=== PATIENT | female | born 1935 | race Caucasian/White ===

== ENCOUNTER 2020-02-24 17:41 | Inpatient (IN) | payer MEDICARE, OTHER ==
[~2020-02-24 17:41] MED LIST: CERTAGEN1 EACH PO; FEOSOL325 MG PO; OXYCODONE-ACET1 EAC1 PO; PANTOPRAZOLE SO40 MG PO; PERCOCET 5-3251 EACH PO; XARELTO10 MG PO
[2020-02-24 20:27] LABS: BASOPHIL 0.4 % (0-2); EOSINOPHIL 0 % (0-7); HCT 20.7 % (37.0-47.0); HGB 6.9 g/dl (12.5-16.0); LYMPHOCYTE 20.1 % (15-48); MCH 32.2 pg (25.0-31.0); MCHC 33.3 g/dL (32.0-36.0); MCV 96.7 fL (78.0-100.0); MONOCYTE 4.7 % (0-12); MPV 10.2 fL (6.0-9.5); NEUTROPHIL 74.4 % (41-80); NRBC 0; PLT 251 K/uL (150-400); RBC 2.14 M/uL (4.20-5.40); RDW 13.1 % (11.5-14.0); WBC 12.2 K/uL (4.0-10.5)
[2020-02-24 20:45] LABS: ALBUMIN 3.3 g/dL (3.4-5.0); BILIRUBIN - TOTAL 0.3 mg/dL (0.2-1.0); BUN/CREAT RATIO (CALC) 44.2 RATIO; CREATININE 0.77 mg/dL (0.51-0.95); GLOBULIN (CALCULATION) 2.7 g/dL; MAGNESIUM 1.9 mg/dL (1.8-2.4); POTASSIUM 4.1 mmol/L (3.5-5.1)
[2020-02-24 20:53] LABS: LACTIC ACID 0.7 mmol/L (0.4-1.9)
[2020-02-24 21:59] LABS: BILIRUBIN NEGATIVE (NEGATIVE); BLOOD 3+ Ery/uL (NEGATIVE); COLOR YELLOW (YELLOW); GLUCOSE (U) NORMAL (NORMAL); LEUKOCYTES 1+ Leu/uL (NEGATIVE); NITRITE POSITIVE (NEGATIVE); PROTEIN NEGATIVE (NEGATIVE); SPECIFIC GRAVITY 1.025 (1.001-1.030); UROBILINOGEN 0.2 mg/dL (0.2-1.0)
[2020-02-24 22:01] LABS: CLARITY HAZY (CLEAR)
[2020-02-24 22:02] LABS: BACTERIA 3+; URINARY RBC RARE; URINARY WBC TNTC
--- NOTE | 2020-02-24 23:08 | NUR ---
PATIENT ARRIVED TO THE FLOOR 2200 VIA STRETCHER. ALERT TO SELF AND VERY FORGETFUL. SINUS TACH NOTED ON MONITIOR. REPORT CALLED BY MARY.
--- NOTE | 2020-02-24 23:20 | NUR ---
ARRIVED TO FLOOR AT 2200. ALERT TO SELF AND PLACE VERY FORGETFUL. SINUS TACH NOTED ON MONITIOR
[2020-02-24 23:21] LABS: IRON % SATURATION 20.1 %SAT (20-50)
[2020-02-24 23:49] LABS: FOLIC ACID (SERUM) 13.2 ng/mL (8.6-58.9)
--- NOTE | 2020-02-25 04:42 | NUR ---
PATIENTS HGB 6.9 ON ARRIVAL TO TCU FLOOR. PATIENT ONLY HAD A 22 GAUGE IV. MULTIPLE NURSE ATTEMPTED 18 TIMES TO OBTAIN IV SITE. 20 GAUGE TO RFA OBTAIN BUT NOT FLUSHING WELL ENOUGH AT THIS TIME TO RUN BLOOD TRANSFUSION. TIRE RETREADER AWARE OF BLOOD NOT BEING STARTED.
[2020-02-25 06:58] LABS: BILIRUBIN NEGATIVE (NEGATIVE); BLOOD TRACE-INTACT Ery/uL (NEGATIVE); CLARITY CLEAR (CLEAR); COLOR YELLOW (YELLOW); GLUCOSE (U) NORMAL (NORMAL); LEUKOCYTES 1+ Leu/uL (NEGATIVE); NITRITE POSITIVE (NEGATIVE); PROTEIN NEGATIVE (NEGATIVE); SPECIFIC GRAVITY 1.025 (1.001-1.030); UROBILINOGEN 0.2 mg/dL (0.2-1.0); pH 5.5 (5.0-9.0)
[2020-02-25 07:08] LABS: URINARY WBC 20-50
[2020-02-25 07:09] LABS: BACTERIA 2+; URINARY RBC RARE
[2020-02-25 07:11] LABS: SQUAMOUS EPITHELIAL CELLS RARE
--- NOTE | 2020-02-25 10:38 | NUR ---
1010 MIDLINE ORDERED FOR PT FOR POOR IV ACCESS. PROCEDURE EXPLAINED TO PT ALONG WITH RISKS AND BENEFITS. LEFT ARM POSITIONED OUT TO SIDE, THE US MACHINE WAS USED TO LOCATE THE LEFT UPPER ARM BASILIC VEIN, VEIN WAS MARKED AND THEN THE ARM WAS CLEANSED WITH CHLORAPREP TH EUS MACHINE WAS USED TO LOCATE THE BASILIC VEIN ONCE AGAIN AND THE ARE WAS ANESTHETIZED WITH 1% LICOCAINE, A #21 GAUGE GUIDE NEEDLE WAS USED TO CANNULATED THE VEIN, HAD A GOOD BLOOD RETURN AND A GUIDE WIRE WAS ATTEMPTED TO BE THREADED THRU THE GUIDE NEEDLE WITHOUT SUCCESS, THIS WAS AGAIN ATTEMPTD RIGHT ABOVE THE FIRST SITE WITHOUT SUCCESS. THEN THE RIGHT ARM WAS POSITIONED AND THE US MACHINE WAS USED TO LOCATE THE RIGHT UPPER ARM BASILIC VEIN, THE VEIN WAS LOCATED AND MARKED. THE ARM WAS CLEANSED WITH CHLORAPREP AND THEN THE AREA WAS ANESTHESIZED WITH 1% LIDOCAINE A #21 GAUGE GUIDE NEEDLE WAS USED TO CANNULATE THE RIGHT UPPER ARM BASILIC VEIN, THERE WAS GOOD BLOOD RETURN, THE GUIDE WIRE WAS THREADED THROUGH THE GUIDE NEEDLE WITHOUT DIFFICULTY, THE GUIDE NEEDLE WAS REMOVED OVER THE GUIDE WIRE. A 20G 10 CM MIDLINE CATHETER WAS THREADED OVER THE GUIDE WIRE, THE WIRE WAS THEN REMOVE LEAVING THE CATHETER IN PLACE. THERE WAS GOOD BLOOD RETURN AND IT FLUSHED EASILY WITH STERILE NORMAL SALINE. THE CONNECTOR WAS FLUSHED AND ATTACHED TO THE MIDLINE CATHETER WITH AN END CAP. THERE WAS GOOD BLOOD RETURN AND THE CATHETER WAS FLUSHED EASILY WITH 30ML OF STERILE SALINE. THE PATIENT'S ARM WAS CLEANED AND A STERILE DRESSING WAS APPLIED OVER THE MIDLINE CATHETER. PT TOLERATED THE PROCEDURE WELL. REPORT WAS GIVEN TO KAREEM NOYOLA R.N. IN TCU.
[2020-02-25 10:42] LABS: BASOPHIL 0.7 % (0-2); HCT 17.7 % (37.0-47.0); LYMPHOCYTE 36.2 % (15-48); MCH 31.9 pg (25.0-31.0); MCHC 32.8 g/dL (32.0-36.0); MCV 97.3 fL (78.0-100.0); MONOCYTE 6.6 % (0-12); MPV 10.3 fL (6.0-9.5); NEUTROPHIL 55.2 % (41-80); NRBC 0; PLT 217 K/uL (150-400); RBC 1.82 M/uL (4.20-5.40); RDW 13.1 % (11.5-14.0); WBC 6.9 K/uL (4.0-10.5)
[2020-02-25 10:48] LABS: HGB 5.8 g/dl (12.5-16.0)
[2020-02-25 11:13] LABS: BUN/CREAT RATIO (CALC) 36.8 RATIO; CREATININE 0.68 mg/dL (0.51-0.95); POTASSIUM 3.8 mmol/L (3.5-5.1)
[2020-02-25 22:39] LABS: HCT 29.3 % (37.0-47.0); HGB 9.7 g/dL (12.5-16.0)
[2020-02-26 05:51] LABS: BASOPHIL 0.8 % (0-2); EOSINOPHIL 1.2 % (0-7); HCT 28.7 % (37.0-47.0); LYMPHOCYTE 27.4 % (15-48); MCH 28.8 pg (25.0-31.0); MCHC 32.1 g/dL (32.0-36.0); MONOCYTE 6.9 % (0-12); MPV 9.7 fL (6.0-9.5); NEUTROPHIL 63.3 % (41-80); NRBC 0; PLT 203 K/uL (150-400); RBC 3.19 M/uL (4.20-5.40); RDW 15.9 % (11.5-14.0); WBC 7.4 K/uL (4.0-10.5)
[2020-02-26 05:53] LABS: HGB 9.2 g/dl (12.5-16.0)
[2020-02-26 06:03] LABS: BUN/CREAT RATIO (CALC) 18.9 RATIO; CREATININE 0.74 mg/dL (0.51-0.95); POTASSIUM 3.7 mmol/L (3.5-5.1)
--- NOTE | 2020-02-26 21:21 | NUR ---
WILL ADGITATED AND WILL NOT LEAVE ON SITE COORDINATOR, BAG GRADER NOTIFIED AND WILL ORDER A SITTER. WILL CONTINUE TO MONITOR
[2020-02-27 05:04] LABS: BASOPHIL 0.6 % (0-2); EOSINOPHIL 1.3 % (0-7); HCT 26.1 % (37.0-47.0); HGB 8.6 g/dl (12.5-16.0); MCH 30.1 pg (25.0-31.0); MCV 91.3 fL (78.0-100.0); MONOCYTE 6.6 % (0-12); NEUTROPHIL 65.1 % (41-80); NRBC 0; PLT 255 K/uL (150-400); RBC 2.86 M/uL (4.20-5.40); RDW 15.8 % (11.5-14.0); WBC 8.4 K/uL (4.0-10.5)
[2020-02-27 05:09] LABS: BUN/CREAT RATIO (CALC) 26.6 RATIO; CREATININE 0.79 mg/dL (0.51-0.95); POTASSIUM 3.5 mmol/L (3.5-5.1)
[2020-02-28 06:09] LABS: BASOPHIL 0.6 % (0-2); HCT 24.4 % (37.0-47.0); LYMPHOCYTE 25.7 % (15-48); MCHC 32.8 g/dL (32.0-36.0); MCV 91.4 fL (78.0-100.0); MONOCYTE 7.5 % (0-12); MPV 9.8 fL (6.0-9.5); NEUTROPHIL 63.9 % (41-80); NRBC 0; PLT 258 K/uL (150-400); RBC 2.67 M/uL (4.20-5.40); RDW 16.3 % (11.5-14.0)
[2020-02-28 07:45] LABS: BUN/CREAT RATIO (CALC) 20.3 RATIO; CREATININE 0.79 mg/dL (0.51-0.95); POTASSIUM 3.8 mmol/L (3.5-5.1)
--- NOTE | 2020-02-28 16:47 | NUR ---
02/28/20 Ms. Fitzpatrick is a 84 y/o woman. She was oriented to name, , and place at the time of the social assessment. History of dementia is noted in the H&P. Ms. Fitzpatrick reported the following. She had 3 sons; one is , one lives in [place], and Torres Fitzpatrick lives in the home. She has a rw and 3in1. Ms. Fitzpatrick reports to be independent with ADLS, housekeeping, and meal preparation. She reports her son to do the shopping and to be helpful. - Several unsuccessful attempts have been made to reach her son, by telephone. - Ms. Fitzpatrick chose [facility], affliations explained. The HHR included PT, nursing and social work to evaluate home safety.
[2020-02-29 04:21] LABS: BASOPHIL 0.7 % (0-2); EOSINOPHIL 1.7 % (0-7); HGB 8.7 g/dl (12.5-16.0); LYMPHOCYTE 28.9 % (15-48); MCH 30.1 pg (25.0-31.0); MCHC 32.2 g/dL (32.0-36.0); MCV 93.4 fL (78.0-100.0); MONOCYTE 7.1 % (0-12); MPV 9.8 fL (6.0-9.5); NEUTROPHIL 61.2 % (41-80); NRBC 0; PLT 345 K/uL (150-400); RBC 2.89 M/uL (4.20-5.40); RDW 16.2 % (11.5-14.0); WBC 8.4 K/uL (4.0-10.5)
[2020-02-29 04:57] LABS: CREATININE 0.8 mg/dL (0.51-0.95); POTASSIUM 3.5 mmol/L (3.5-5.1)
[2020-02-29] MEDS ORDERED: PANTOPRAZOLE SO40 MG PO (13:16)
[2020-02-29 16:19] LABS: BASOPHIL 0.7 % (0-2); EOSINOPHIL 1.2 % (0-7); HCT 28.1 % (37.0-47.0); HGB 8.9 g/dl (12.5-16.0); LYMPHOCYTE 22.5 % (15-48); MCH 29.7 pg (25.0-31.0); MCHC 31.7 g/dL (32.0-36.0); MCV 93.7 fL (78.0-100.0); MONOCYTE 7.1 % (0-12); MPV 9.4 fL (6.0-9.5); NEUTROPHIL 68.1 % (41-80); NRBC 0; PLT 351 K/uL (150-400); RDW 16.4 % (11.5-14.0); WBC 8.5 K/uL (4.0-10.5)
[2020-02-29 16:39] LABS: ALBUMIN 3.2 g/dL (3.4-5.0); BILIRUBIN - TOTAL 0.4 mg/dL (0.2-1.0); BUN/CREAT RATIO (CALC) 23.1 RATIO; CREATININE 0.78 mg/dL (0.51-0.95); GLOBULIN (CALCULATION) 3.1 g/dL; POTASSIUM 3.9 mmol/L (3.5-5.1); TOTAL PROTEIN 6.3 g/dL (6.4-8.2)
--- NOTE | 2020-02-29 17:24 | NUR ---
02/29/20 Patient had a decline in condition and therefore will not be discharged today as planned. Please notify [facility] at [phone] should patient discharge over the weekend.
--- NOTE | 2020-02-29 17:40 | NUR ---
1520 SUSIE SALES RN AND I HELPED PATIENT TO THE TOILET TO START DRESSING TO GO HOME.PATIENT PASSING GAS NO BM, PATIENT STATED SHE FELT WEAK I ASSISTED HER TO SIT DOWN ON THE TOILET TO REST PATIENT STARTED TO SLUMP OVER AND BECAME UNRESPONSIVE. PATIENTS LEFT ARM BECAME POSTURED AND WE LAID HER IN THE FLOOR PULSE ASSESSED WEAK AND THREADY 1529 CODE WAS CALLED AND COMPRESSIONS STARTED BY SUSIE Charlton RN, PATIENT YELLED OUT AFTER INITIAL COMPRESSION. 1531 PATIENT CARRIED TO HER BED V/S TAKEN 02-100%, HR 109, BP 123/60, RR 20, #20 G PLACED IN RIGHT HAND, 1535 100% NRB PLACED ON PATIENT, PATIENT STATED SHE WAS EXPERIENCING NO PAIN, EKG ORDERED RESULTS NSR, HR 97, DR JAUREGUI ASSESSED PATIENT, LABS ORDERED/ STAT HEAD CT/ CHEST X RAY ORDERED. 1539 BG CHECKED RESULTS 130. PATIENT RESTING COMFORTABLY AT THIS TIME, V/S STABLE.
[2020-03-01 05:47] LABS: BASOPHIL 0.7 % (0-2); HCT 25.4 % (37.0-47.0); HGB 8.1 g/dl (12.5-16.0); MCH 30.2 pg (25.0-31.0); MCHC 31.9 g/dL (32.0-36.0); MCV 94.8 fL (78.0-100.0); MONOCYTE 6.7 % (0-12); MPV 9.7 fL (6.0-9.5); NEUTROPHIL 71.3 % (41-80); NRBC 0; PLT 348 K/uL (150-400); RBC 2.68 M/uL (4.20-5.40); RDW 16.3 % (11.5-14.0); WBC 8.6 K/uL (4.0-10.5)
[2020-03-01 06:03] LABS: BUN/CREAT RATIO (CALC) 25.7 RATIO; CREATININE 0.7 mg/dL (0.51-0.95); POTASSIUM 3.4 mmol/L (3.5-5.1)
[2020-03-02 04:33] LABS: BASOPHIL 0.9 % (0-2); EOSINOPHIL 2.4 % (0-7); HCT 31.8 % (37.0-47.0); HGB 10.2 g/dl (12.5-16.0); LYMPHOCYTE 22.8 % (15-48); MCH 29.3 pg (25.0-31.0); MCHC 32.1 g/dL (32.0-36.0); MCV 91.4 fL (78.0-100.0); MPV 9.5 fL (6.0-9.5); NEUTROPHIL 66.6 % (41-80); NRBC 0; PLT 390 K/uL (150-400); RBC 3.48 M/uL (4.20-5.40); RDW 16.9 % (11.5-14.0); WBC 7.9 K/uL (4.0-10.5)
[2020-03-02 04:49] LABS: BUN/CREAT RATIO (CALC) 18.1 RATIO; CREATININE 0.83 mg/dL (0.51-0.95); POTASSIUM 3.8 mmol/L (3.5-5.1)
--- NOTE | 2020-03-02 19:51 | NUR ---
PT WILL NOT ALLOW US TO PLACE CLIENT APPLICATION SUPPORT ENGINEER TO GET A CARDIAC STRIP, PULLER OUT NOTIFIED
[2020-03-03 06:08] LABS: BASOPHIL 1.2 % (0-2); EOSINOPHIL 3.8 % (0-7); HCT 32.5 % (37.0-47.0); HGB 10.4 g/dl (12.5-16.0); LYMPHOCYTE 34.1 % (15-48); MCH 29.7 pg (25.0-31.0); MCV 92.9 fL (78.0-100.0); MPV 9.4 fL (6.0-9.5); NEUTROPHIL 52.7 % (41-80); NRBC 0; PLT 440 K/uL (150-400); RDW 16.5 % (11.5-14.0); WBC 5.8 K/uL (4.0-10.5)
[2020-03-03 06:24] LABS: BUN/CREAT RATIO (CALC) 19.8 RATIO; CREATININE 0.96 mg/dL (0.51-0.95)
--- NOTE | 2020-03-03 08:00 | NUR ---
PT REFUSES TELEMETRY MONITORING AT THIS TIME, NOTIFIED AND AWARE.
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
--- NOTE | 2020-03-03 14:33 | NUR ---
03/03/20 [facility] was notified of discharge
--- NOTE | 2020-03-03 16:06 | NUR ---
pt discharged via wheelchair with son. pt and family education on new med protonix, gi bleed education, signs and symptoms, call dr if you notice black, tarry or bloody stool, education on what foods to avoid with previous gi bleed. pt iv removed and dressed.
== END 2020-03-03 15:55 | disposition home health service (06) | DRG 377 ==
LOC: FER 17:41 → FTCU 20:52
PROVIDERS: Emergency Medicine; Internal Medicine; Nurse Practitioner; ADMIT Internal Medicine
PROC: 30233N1 Transfusion of Nonautologous Red Blood Cells into Peripheral Vein, Percutaneous Approach (ICD-10-PCS; principal; 2020-02-25)
PROC: 05HY33Z Insertion of Infusion Device into Upper Vein, Percutaneous Approach (ICD-10-PCS; 2020-02-25)
DX: K57.91 Diverticulosis of intestine, part unspecified, without perforation or abscess with bleeding (principal); G93.41 Metabolic encephalopathy; D62 Acute posthemorrhagic anemia; N39.0 Urinary tract infection, site not specified; F03.90 Unspecified dementia, unspecified severity, without behavioral disturbance, psychotic disturbance, mood disturbance, and anxiety; I10 Essential (primary) hypertension; Z90.710 Acquired absence of both cervix and uterus; Z98.890 Other specified postprocedural states; K80.20 Calculus of gallbladder without cholecystitis without obstruction; Z20.822 Contact with and (suspected) exposure to COVID-19; B96.1 Klebsiella pneumoniae [K. pneumoniae] as the cause of diseases classified elsewhere; I95.9 Hypotension, unspecified
CPT/HCPCS: 36415; 36430; 70450; 71045; 80048; 80053; 81001; 82607; 82728; 82746; 83540; 83550; 83605; 83735; 84484; 85014; 85018; 85025; 86850; 86900; 86901; 86922; 87040; 87076; 87088; 87186; 93005; 97162; 97166; 97530-GP; 97535; C1751; G0378; J0696; J1642; J7030; J7120; P9016; U0002

== ENCOUNTER 2020-09-23 17:03 | Day surgery (SDCO) | payer MEDICARE ==
[~2020-09-23] VITALS: Ht 160 cm; Wt 47.7 kg
[2020-09-23 19:13] LABS: BILIRUBIN NEGATIVE (NEGATIVE); BLOOD TRACE-INTACT Ery/uL (NEGATIVE); COLOR YELLOW (YELLOW); GLUCOSE (U) NORMAL (NORMAL); LEUKOCYTES TRACE Leu/uL (NEGATIVE); NITRITE POSITIVE (NEGATIVE); PROTEIN NEGATIVE (NEGATIVE); SPECIFIC GRAVITY 1.015 (1.001-1.030)
[2020-09-23 19:14] LABS: CLARITY HAZY (CLEAR)
[2020-09-23 19:19] LABS: BACTERIA 4+
[2020-09-23 19:25] LABS: BASOPHIL 0.9 % (0-2); HGB 13.6 g/dl (12.5-16.0); LYMPHOCYTE 37.3 % (15-48); MCH 30.4 pg (25.0-31.0); MCHC 32.4 g/dL (32.0-36.0); MONOCYTE 5.9 % (0-12); MPV 9.6 fL (6.0-9.5); NEUTROPHIL 53.7 % (41-80); NRBC 0; PLT 232 K/uL (150-400); RBC 4.47 M/uL (4.20-5.40); RDW 13.4 % (11.5-14.0); WBC 5.6 K/uL (4.0-10.5)
[2020-09-23 19:42] LABS: BILIRUBIN - TOTAL 0.4 mg/dL (0.2-1.0); BUN/CREAT RATIO (CALC) 24.7 RATIO; CREATININE 0.89 mg/dL (0.51-0.95); GLOBULIN (CALCULATION) 3.2 g/dL; POTASSIUM 3.9 mmol/L (3.5-5.1); TOTAL PROTEIN 7.2 g/dL (6.4-8.2)
[2020-09-23 20:08] LABS: AMPHETAMINES NEGATIVE (NEGATIVE); BARBITURATES NEGATIVE (NEGATIVE); ECSTASY (MDMA) NEGATIVE (NEGATIVE); MARIJUANA (THC) NEGATIVE (NEGATIVE); METHADONE NEGATIVE (NEGATIVE); OPIATES NEGATIVE (NEGATIVE); OXYCODONE NEGATIVE (NEGATIVE)
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
[2020-09-24] MEDS ORDERED: LEVAQUIN500 MG PO (14:13)
--- NOTE | 2020-09-24 16:16 | NUR ---
1602: DISCUSSED PT'S DISCHARGE WITH SON INA AND REVIEWED ANTIBIOTIC AND PROTONIX TO TAKE AT HOME. HE V/U. IV REMOVED, CATHETER INTACT, NO SWELLING. THIS RN HELPED TO GET PT DRESSED AND TOOK PT TO CAR VIA WHEELCHAIR. PT ABLE TO TRANSFER SELF WITH MINIMAL x1 ASSIST.
== END 2020-09-24 16:00 | disposition home or self-care (01) ==
LOC: FER 17:03 → FTCU 09-24 02:03
PROVIDERS: Emergency Medicine; Emergency Medicine Emergency Medical Services; ADMIT Internal Medicine
DX: N30.01 Acute cystitis with hematuria (principal); R41.82 Altered mental status, unspecified; T76.11XA Adult physical abuse, suspected, initial encounter; I10 Essential (primary) hypertension; D50.9 Iron deficiency anemia, unspecified; F03.90 Unspecified dementia, unspecified severity, without behavioral disturbance, psychotic disturbance, mood disturbance, and anxiety; Z98.890 Other specified postprocedural states; Z20.822 Contact with and (suspected) exposure to COVID-19
CPT/HCPCS: 36415; 70450; 71045; 73060; 80053; 80305; 81001; 84484; 85025; 87076; 87088; 87186; 93005; G0378; J0696; J1650; U0002

== ENCOUNTER 2020-11-03 16:32 | Emergency (ER) | payer MEDICARE ==
[~2020-11-03 16:32] MED LIST changes: +LEVAQUIN500 MG PO
[2020-11-03 17:47] LABS: BASOPHIL 1.2 % (0-2); EOSINOPHIL 1.4 % (0-7); HCT 44.3 % (37.0-47.0); HGB 14.2 g/dl (12.5-16.0); LYMPHOCYTE 31.9 % (15-48); MCH 30.3 pg (25.0-31.0); MCHC 32.1 g/dL (32.0-36.0); MCV 94.7 fL (78.0-100.0); MONOCYTE 6.1 % (0-12); MPV 9.6 fL (6.0-9.5); NEUTROPHIL 59.1 % (41-80); NRBC 0; PLT 277 K/uL (150-400); RBC 4.68 M/uL (4.20-5.40); RDW 13.4 % (11.5-14.0); WBC 6.9 K/uL (4.0-10.5)
[2020-11-03 17:48] LABS: BILIRUBIN NEGATIVE (NEGATIVE); BLOOD 1+ Ery/uL (NEGATIVE); CLARITY CLEAR (CLEAR); COLOR YELLOW (YELLOW); GLUCOSE (U) NORMAL (NORMAL); LEUKOCYTES TRACE Leu/uL (NEGATIVE); NITRITE NEGATIVE (NEGATIVE); PROTEIN NEGATIVE (NEGATIVE); SPECIFIC GRAVITY >=1.030 (1.001-1.030); UROBILINOGEN 0.2 mg/dL (0.2-1.0); pH 5.5 (5.0-9.0)
[2020-11-03 17:55] LABS: BACTERIA 3+; URINARY WBC 20-50
[2020-11-03 18:08] LABS: ALBUMIN 4.1 g/dL (3.4-5.0); BILIRUBIN - TOTAL 0.4 mg/dL (0.2-1.0); BUN/CREAT RATIO (CALC) 29.3 RATIO; CREATININE 0.92 mg/dL (0.51-0.95); GLOBULIN (CALCULATION) 3.7 g/dL; POTASSIUM 4.4 mmol/L (3.5-5.1); TOTAL PROTEIN 7.8 g/dL (6.4-8.2)
[2020-11-03] MEDS ORDERED: CEPHALEXIN500 M1 PO (19:24)
== END 2020-11-03 20:28 | disposition home or self-care (01) ==
LOC: FER 16:32
PROVIDERS: Emergency Medicine Emergency Medical Services
DX: F03.90 Unspecified dementia, unspecified severity, without behavioral disturbance, psychotic disturbance, mood disturbance, and anxiety (principal); H10.9 Unspecified conjunctivitis; I10 Essential (primary) hypertension
CPT/HCPCS: 36415; 70450; 71045; 80053; 81001; 82550; 83605; 84484; 85025; 93005

== ENCOUNTER 2020-11-10 10:50 | Day surgery (SDCO) | payer MEDICARE ==
[~2020-11-10] VITALS: Ht 160 cm; Wt 44.9 kg
[~2020-11-10 10:50] MED LIST changes: +CEPHALEXIN500 M1 PO
[2020-11-10 12:01] LABS: BASOPHIL 1.1 % (0-2); EOSINOPHIL 1.1 % (0-7); HCT 35.5 % (37.0-47.0); HGB 11.4 g/dl (12.5-16.0); LYMPHOCYTE 28.7 % (15-48); MCH 30.3 pg (25.0-31.0); MCHC 32.1 g/dL (32.0-36.0); MCV 94.4 fL (78.0-100.0); MONOCYTE 6.2 % (0-12); MPV 9.8 fL (6.0-9.5); NEUTROPHIL 62.5 % (41-80); NRBC 0; PLT 221 K/uL (150-400); RBC 3.76 M/uL (4.20-5.40); RDW 13.5 % (11.5-14.0); WBC 5.5 K/uL (4.0-10.5)
[2020-11-10 12:14] LABS: INR 1.1 (0.9-1.2); PROTHROMBIN TIME 13.6 SECONDS (11.8-13.4); PTT 30.8 SECONDS (24.4-34.7)
[2020-11-10 12:16] LABS: BILIRUBIN NEGATIVE (NEGATIVE); BLOOD 1+ Ery/uL (NEGATIVE); CLARITY CLEAR (CLEAR); COLOR YELLOW (YELLOW); GLUCOSE (U) NORMAL (NORMAL); LEUKOCYTES TRACE Leu/uL (NEGATIVE); NITRITE POSITIVE (NEGATIVE); PROTEIN NEGATIVE (NEGATIVE); SPECIFIC GRAVITY 1.025 (1.001-1.030)
[2020-11-10 12:24] LABS: BACTERIA 3+; URINARY WBC 20-50
[2020-11-10 12:40] LABS: ALBUMIN 3.5 g/dL (3.4-5.0); BILIRUBIN - TOTAL 0.6 mg/dL (0.2-1.0); BUN/CREAT RATIO (CALC) 28.4 RATIO; CREATININE 0.67 mg/dL (0.51-0.95); GLOBULIN (CALCULATION) 2.9 g/dL; POTASSIUM 4.4 mmol/L (3.5-5.1); TOTAL PROTEIN 6.4 g/dL (6.4-8.2)
[2020-11-10 13:33] LABS: LACTIC ACID 0.9 mmol/L (0.4-1.9)
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
[2020-11-10 17:54] LABS: EOSINOPHIL 1.8 % (0-7); HCT 35.6 % (37.0-47.0); HGB 11.5 g/dl (12.5-16.0); LYMPHOCYTE 36.4 % (15-48); MCH 30.7 pg (25.0-31.0); MCHC 32.3 g/dL (32.0-36.0); MCV 94.9 fL (78.0-100.0); NEUTROPHIL 53.6 % (41-80); NRBC 0; PLT 229 K/uL (150-400); RBC 3.75 M/uL (4.20-5.40); RDW 13.2 % (11.5-14.0); WBC 5.1 K/uL (4.0-10.5)
[2020-11-11 03:50] LABS: BILIRUBIN NEGATIVE (NEGATIVE); BLOOD TRACE-INTACT Ery/uL (NEGATIVE); CLARITY CLEAR (CLEAR); COLOR YELLOW (YELLOW); GLUCOSE (U) NORMAL (NORMAL); LEUKOCYTES TRACE Leu/uL (NEGATIVE); NITRITE NEGATIVE (NEGATIVE); PROTEIN NEGATIVE (NEGATIVE); pH 6.5 (5.0-9.0)
[2020-11-11 03:56] LABS: BACTERIA TRACE; URINARY RBC RARE
[2020-11-11 08:53] LABS: BASOPHIL 0.9 % (0-2); EOSINOPHIL 1.3 % (0-7); HCT 34.6 % (37.0-47.0); HGB 11.1 g/dl (12.5-16.0); LYMPHOCYTE 26.7 % (15-48); MCH 30.2 pg (25.0-31.0); MCHC 32.1 g/dL (32.0-36.0); MONOCYTE 5.7 % (0-12); MPV 9.6 fL (6.0-9.5); NEUTROPHIL 65.2 % (41-80); NRBC 0; PLT 236 K/uL (150-400); RBC 3.68 M/uL (4.20-5.40); RDW 13.2 % (11.5-14.0); WBC 6.4 K/uL (4.0-10.5)
--- NOTE | 2020-11-11 09:00 | NUR ---
BS RECHECKED AFTER DEXTROSE, 206
[2020-11-11 09:14] LABS: BUN/CREAT RATIO (CALC) 27.3 RATIO; CREATININE 0.66 mg/dL (0.51-0.95); MAGNESIUM 2.1 mg/dL (1.8-2.4); POTASSIUM 3.9 mmol/L (3.5-5.1)
--- NOTE | 2020-11-11 16:56 | NUR ---
PATIENT UP OOB INTERVENED BY THIS NURSE, SHE WAS HEADING TO THE DOOR ZARINA, "THEY AREN'T GONNA TALK ABOUT ME LIKE THAT, THEM BITCHES, SITTING THERE TALKING ABOUT ME, INDICATING PATIENT AND FAMILY IN ROOM 3. REDIRECTED PATIENT AND ASSISTED HER BACK TO BED
[2020-11-12 07:15] LABS: BASOPHIL 0.2 % (0-2); EOSINOPHIL 0.7 % (0-7); HCT 37.6 % (37.0-47.0); HGB 12.7 g/dl (12.5-16.0); LYMPHOCYTE 12.7 % (15-48); MCH 30.5 pg (25.0-31.0); MCHC 33.8 g/dL (32.0-36.0); MCV 90.2 fL (78.0-100.0); MONOCYTE 4.2 % (0-12); MPV 10.4 fL (6.0-9.5); NRBC 0; PLT 178 K/uL (150-400); RBC 4.17 M/uL (4.20-5.40); RDW 12.8 % (11.5-14.0); WBC 5.5 K/uL (4.0-10.5)
[2020-11-12 07:25] LABS: BUN/CREAT RATIO (CALC) 18.9 RATIO; CREATININE 0.74 mg/dL (0.51-0.95); MAGNESIUM 2.1 mg/dL (1.8-2.4); POTASSIUM 4.3 mmol/L (3.5-5.1)
[2020-11-14] MEDS ORDERED: LEVAQUIN750 MG PO (12:02)
[2020-11-14] MEDS ORDERED: PEPCID AC20 MG PO (12:02)
--- NOTE | 2020-11-14 13:26 | NUR ---
LATE ENTRY: RECEIVED INFO FROM [facility]. PT. ACCEPTED FOR TUESDAY. 11/14/2020. SON TO TRANSPORT. HE IS TO COME TO FACILITY TO SIGN PAPERWORK AT 11:00 ON TUESDAY. TC TO INA. HE HAS SPOKEN WITH [facility] AND WILL MEET WITH THEM ON TUESDAY FOR PAPERWORK AND DIRECTOR SALES TRAINING HIS MOTHER WHEN READY FOR D/C.
== END 2020-11-14 14:18 ==
LOC: FER 10:50 → FMS 13:39
PROVIDERS: Emergency Medicine; Internal Medicine; ADMIT Family Medicine
DX: K57.31 Diverticulosis of large intestine without perforation or abscess with bleeding (principal); D64.9 Anemia, unspecified; K31.89 Other diseases of stomach and duodenum; K29.51 Unspecified chronic gastritis with bleeding; K29.81 Duodenitis with bleeding; K26.4 Chronic or unspecified duodenal ulcer with hemorrhage; K44.9 Diaphragmatic hernia without obstruction or gangrene; N30.00 Acute cystitis without hematuria; B96.20 Unspecified Escherichia coli [E. coli] as the cause of diseases classified elsewhere; G93.41 Metabolic encephalopathy; R53.81 Other malaise; F03.90 Unspecified dementia, unspecified severity, without behavioral disturbance, psychotic disturbance, mood disturbance, and anxiety; I10 Essential (primary) hypertension; K59.00 Constipation, unspecified; R22.42 Localized swelling, mass and lump, left lower limb; Z79.2 Long term (current) use of antibiotics; Z79.899 Other long term (current) drug therapy; Z20.822 Contact with and (suspected) exposure to COVID-19
CPT/HCPCS: 36415; 80048; 80053; 81001; 83036; 83605; 83735; 84443; 84484; 85025; 85379; 85610; 85730; 87040; 87076; 87088; 87186; 88305; 93005; 93970; 94010; 97162; 97166; 97530-GP; 97535; G0378; J0696; J1200; J1956; J2543; J2704; J3486; J7120; U0002

== ENCOUNTER 2021-04-09 14:29 | Emergency (ER) | payer MEDICARE, OTHER ==
[~2021-04-09 14:29] MED LIST changes: +LEVAQUIN750 MG PO; +PEPCID AC20 MG PO
[2021-04-09 14:53] LABS: BILIRUBIN NEGATIVE (NEGATIVE); BLOOD TRACE-INTACT Ery/uL (NEGATIVE); CLARITY HAZY (CLEAR); COLOR YELLOW (YELLOW); GLUCOSE (U) NORMAL (NORMAL); LEUKOCYTES 1+ Leu/uL (NEGATIVE); NITRITE POSITIVE (NEGATIVE); PROTEIN NEGATIVE (NEGATIVE); UROBILINOGEN 0.2 mg/dL (0.2-1.0); pH 6.5 (5.0-9.0)
[2021-04-09 15:09] LABS: BACTERIA 3+
[2021-04-09 15:11] LABS: TRANSITIONAL EPITHELIAL CELLS RARE
[2021-04-09 17:02] LABS: BASOPHIL 1.2 % (0-2); EOSINOPHIL 1.7 % (0-7); HCT 37.8 % (37.0-47.0); HGB 12.2 g/dl (12.5-16.0); LYMPHOCYTE 36.7 % (15-48); MCH 30.6 pg (25.0-31.0); MCHC 32.3 g/dL (32.0-36.0); MCV 94.7 fL (78.0-100.0); MPV 9.3 fL (6.0-9.5); NEUTROPHIL 51.2 % (41-80); NRBC 0; PLT 306 K/uL (150-400); RBC 3.99 M/uL (4.20-5.40); RDW 16.5 % (11.5-14.0); WBC 5.9 K/uL (4.0-10.5)
[2021-04-09 17:44] LABS: ALBUMIN 3.8 g/dL (3.4-5.0); ALKALINE PHOSHATASE 65 U/L (46-116); ALT 18 U/L (14-59); AST 26 U/L (15-37); BILIRUBIN - TOTAL 0.5 mg/dL (0.2-1.0); BUN 18 mg/dL (7-18); BUN/CREAT RATIO (CALC) 29.5 RATIO; CHLORIDE 104 mmol/L (98-107); CO2 (BICARBONATE) 29 mmol/L (21-32); CREATININE 0.61 mg/dL (0.51-0.95); GLOBULIN (CALCULATION) 3.5 g/dL; GLUCOSE 77 mg/dL (74-106); POTASSIUM 4.2 mmol/L (3.5-5.1); TOTAL PROTEIN 7.3 g/dL (6.4-8.2)
[2021-04-09 17:50] LABS: C-REACTIVE PROTEIN < 0.20 mg/dL (<=0.90)
[2021-04-09 17:53] LABS: DEPAKENE/VALPROIC ACID 7.4 ug/mL (50.0-100.0)
[2021-04-09 18:34] LABS: LACTIC ACID 0.4 mmol/L (0.4-1.9)
[2021-04-09 19:04] LABS: CORONAVIRUS 2019 SARS-COV-2 NEGATIVE (NEGATIVE); INFLUENZA A NAA NEGATIVE (NEGATIVE)
[2021-04-09] MEDS ORDERED: KEFLEX250 MG PO (19:10)
== END 2021-04-09 19:24 | disposition home or self-care (01) ==
LOC: FER 14:29
PROVIDERS: Emergency Medicine
DX: R41.0 Disorientation, unspecified (principal); R44.3 Hallucinations, unspecified; F03.90 Unspecified dementia, unspecified severity, without behavioral disturbance, psychotic disturbance, mood disturbance, and anxiety
CPT/HCPCS: 36415; 70450; 71250; 80053; 80164; 81001; 82140; 83605; 83735; 83880; 84145; 84439; 84443; 84484; 85025; 86140; 87076; 87088; 87186; 93005; G0480; J0696; U0002

== ENCOUNTER 2021-04-22 16:38 | Emergency (ER) | payer MEDICARE, OTHER ==
[~2021-04-22 16:38] MED LIST changes: +KEFLEX250 MG PO
[2021-04-22 17:09] LABS: BASOPHIL 1.3 % (0-2); HCT 37.8 % (37.0-47.0); HGB 12.1 g/dl (12.5-16.0); LYMPHOCYTE 23.4 % (15-48); MCH 31.2 pg (25.0-31.0); MCV 97.4 fL (78.0-100.0); MONOCYTE 7.9 % (0-12); MPV 9.3 fL (6.0-9.5); NRBC 0; PLT 343 K/uL (150-400); RBC 3.88 M/uL (4.20-5.40); RDW 16.4 % (11.5-14.0); WBC 7.1 K/uL (4.0-10.5)
[2021-04-22 17:21] LABS: ALBUMIN 3.6 g/dL (3.4-5.0); BILIRUBIN - TOTAL 0.5 mg/dL (0.2-1.0); CREATININE 0.8 mg/dL (0.51-0.95); GLOBULIN (CALCULATION) 3.2 g/dL; POTASSIUM 4.2 mmol/L (3.5-5.1); TOTAL PROTEIN 6.8 g/dL (6.4-8.2)
[2021-04-22 19:01] LABS: BILIRUBIN NEGATIVE (NEGATIVE); BLOOD NEGATIVE Ery/uL (NEGATIVE); CLARITY CLEAR (CLEAR); COLOR YELLOW (YELLOW); GLUCOSE (U) NORMAL (NORMAL); LEUKOCYTES NEGATIVE Leu/uL (NEGATIVE); NITRITE NEGATIVE (NEGATIVE); PROTEIN NEGATIVE (NEGATIVE); SPECIFIC GRAVITY 1.025 (1.001-1.030); UROBILINOGEN 0.2 mg/dL (0.2-1.0)
[2021-04-22 19:07] LABS: SQUAMOUS EPITHELIAL CELLS RARE; URINARY WBC RARE
[2021-04-22] MEDS ORDERED: ONDANSETRON ODT4 MG PO (20:29)
== END 2021-04-22 21:10 | disposition home or self-care (01) ==
LOC: FER 16:38
PROVIDERS: Physician Assistant
DX: R11.2 Nausea with vomiting, unspecified (principal); Z04.3 Encounter for examination and observation following other accident
CPT/HCPCS: 36415; 70450; 71045; 80053; 81001; 83690; 85025; J2405; J7040

== ENCOUNTER 2021-08-11 17:05 | Emergency (ER) | payer MEDICARE, OTHER ==
[~2021-08-11 17:05] MED LIST changes: +ONDANSETRON ODT4 MG PO
[2021-08-11 17:26] LABS: BILIRUBIN NEGATIVE (NEGATIVE); BLOOD TRACE-LYSED Ery/uL (NEGATIVE); CLARITY CLEAR (CLEAR); COLOR YELLOW (YELLOW); GLUCOSE (U) NORMAL (NORMAL); LEUKOCYTES NEGATIVE Leu/uL (NEGATIVE); NITRITE NEGATIVE (NEGATIVE); PROTEIN NEGATIVE (NEGATIVE); SPECIFIC GRAVITY 1.025 (1.001-1.030)
[2021-08-11 17:41] LABS: BACTERIA TRACE
[2021-08-11 20:41] LABS: INFLUENZA A NAA NEGATIVE (NEGATIVE)
[2021-08-11 20:48] LABS: BASOPHIL 0.7 % (0-2); EOSINOPHIL 1.1 % (0-7); HCT 37.9 % (37.0-47.0); HGB 12.5 g/dl (12.5-16.0); LYMPHOCYTE 29.4 % (15-48); MCH 30.6 pg (25.0-31.0); MCV 92.7 fL (78.0-100.0); MONOCYTE 8.1 % (0-12); MPV 9.6 fL (6.0-9.5); NEUTROPHIL 60.6 % (41-80); NRBC 0; PLT 257 K/uL (150-400); RBC 4.09 M/uL (4.20-5.40); RDW 13.7 % (11.5-14.0); WBC 7.4 K/uL (4.0-10.5)
[2021-08-11 20:52] LABS: CORONAVIRUS 2019 SARS-COV-2 POSITIVE (NEGATIVE)
[2021-08-11 21:45] LABS: ALBUMIN 3.7 g/dL (3.4-5.0); BILIRUBIN - TOTAL 0.8 mg/dL (0.2-1.0); BUN/CREAT RATIO (CALC) 27.8 RATIO; CREATININE 0.72 mg/dL (0.51-0.95); GLOBULIN (CALCULATION) 3.2 g/dL; POTASSIUM 3.7 mmol/L (3.5-5.1); TOTAL PROTEIN 6.9 g/dL (6.4-8.2)
== END 2021-08-11 22:20 | disposition home or self-care (01) ==
LOC: FER 17:05
PROVIDERS: Emergency Medicine; Internal Medicine
DX: F03.90 Unspecified dementia, unspecified severity, without behavioral disturbance, psychotic disturbance, mood disturbance, and anxiety (principal); U07.1 COVID-19
CPT/HCPCS: 36415; 70450; 71250; 80053; 81001; 84145; 85025; U0002

== ENCOUNTER 2021-08-25 15:03 | Emergency (ER) | payer MEDICARE, OTHER | END 2021-08-25 18:08 | disposition home or self-care (01) | LOC: FER 15:03 | DX: Z00.00 Encounter for general adult medical examination without abnormal findings (principal); I10 Essential (primary) hypertension; F03.90 Unspecified dementia, unspecified severity, without behavioral disturbance, psychotic disturbance, mood disturbance, and anxiety | CPT/HCPCS: 99282 ==